=== PATIENT | female | born 1995 | race African-American/Black ===

== ENCOUNTER 2017-04-19 06:29 | Observation (INO) | payer OTHER ==
[~2017-04-19] VITALS: Ht 167.6 cm; Wt 64.0 kg
[2017-04-19] MEDS ORDERED: PREN-155 PO (13:30)
== END 2017-04-19 13:10 | disposition left against medical advice (07) ==
LOC: 4S 06:29
PROVIDERS: ADMIT Obstetrics & Gynecology Gynecology; ATTEND Obstetrics & Gynecology Gynecology
DX: O26.892 Other specified pregnancy related conditions, second trimester (principal); M79.643 Pain in unspecified hand; M79.646 Pain in unspecified finger(s); Z3A.21 21 weeks gestation of pregnancy; V89.2XXA Person injured in unspecified motor-vehicle accident, traffic, initial encounter; Y93.89 Activity, other specified; Y92.89 Other specified places as the place of occurrence of the external cause; Y99.8 Other external cause status
CPT/HCPCS: 36415; 76811; 86850; 86900; 86901; G0378

== ENCOUNTER 2017-04-19 13:19 | Emergency (ER) | payer OTHER ==
[~2017-04-19] VITALS: Ht 170.2 cm; Wt 53.6 kg
[2017-04-19] MEDS ORDERED: PREN-155 PO (13:30)
[2017-04-19 15:13] VITALS: BP 110/65
== END 2017-04-19 17:32 | disposition home or self-care (01) ==
LOC: EMS 13:20
DX: O9A.212 Injury, poisoning and certain other consequences of external causes complicating pregnancy, second trimester (principal); S52.602A Unspecified fracture of lower end of left ulna, initial encounter for closed fracture; Z3A.21 21 weeks gestation of pregnancy; V49.49XA Driver injured in collision with other motor vehicles in traffic accident, initial encounter; Y93.89 Activity, other specified; Y92.481 Parking lot as the place of occurrence of the external cause; Y99.8 Other external cause status
CPT/HCPCS: 99284